=== PATIENT | female | born 1975 | race Caucasian/White ===

== ENCOUNTER 2018-12-08 19:03 | Outpatient (CLI) | payer OTHER ==
--- NOTE | 2018-12-09 13:21 | Ultrasound Report ---
Reason: HYPERTHYROIDISM Procedure Date: 12/08/2018 Accession Number: [id number] / [id number] Procedure: US - Head or Neck Soft Tissue CPT Code: FULL RESULT: EXAM: THYROID ULTRASOUND EXAM DATE: 12/08/2018 07:26 PM. CLINICAL HISTORY: Hyperthyroidism. COMPARISON: None. TECHNIQUE: Real time sonographic imaging of the thyroid was performed by the quahogger. Multiple artist's representative static images were saved for review. FINDINGS: THYROID GLAND: Right Lobe: 6.1 x 1.9 x 1.7 cm, volume 9.7 cc. Normal background echotexture. Right Lobe Nodules: None. Left Lobe: 5.2 x 1.6 x 1.7 cm, volume 6.7 cc. Normal background echotexture. Left Lobe Nodules: Solid hypoechoic rim nodule measuring up to 0.6 cm. Isthmus: 0.2 cm AP. Isthmic Nodules: None. LYMPH NODES: No adenopathy demonstrated in the central or lateral compartment. OTHER: None. IMPRESSION: Solid 0.6 cm left lobe of the thyroid nodule does not meet criteria for tissue sampling at this time. Management recommendations are based on 2015 [employer] Management Guidelines for Adult Patients with Thyroid Nodules and Differentiated Thyroid Cancer. RADIA
== END 2018-12-08 19:04 | disposition home or self-care (01) ==
LOC: DI 19:03
PROVIDERS: ATTEND Physician Assistant Medical
DX: E05.90 Thyrotoxicosis, unspecified without thyrotoxic crisis or storm (principal); E04.1 Nontoxic single thyroid nodule
CPT/HCPCS: 76536